=== PATIENT | male | born 1940 | race Caucasian/White ===

== ENCOUNTER 2017-11-03 19:36 | Inpatient (IN) | payer MEDICARE, OTHER ==
[2017-11-03] MEDS ORDERED: POLYETHYLENE GLYCOL 17 GM PACKET PO (21:30)
[2017-11-03] MEDS ORDERED: NITROGLYCERIN (SL) 0.4 MG TAB SL (21:30)
[2017-11-03] MEDS ORDERED: ACETAMINOPHEN 325 MG TAB PO (21:30)
[2017-11-03] MEDS ORDERED: GLUCOSE GEL 15 GRAM TUBE BUCCAL (21:30)
[2017-11-03] MEDS ORDERED: ONDANSETRON (ODT) 4 MG TAB ODT (21:30)
[2017-11-03] MEDS ORDERED: GLUCAGON 1 MG INJ IM (21:30)
[2017-11-03] MEDS ORDERED: DIPHENHYDRAMINE 25 MG CAP PO (21:30)
[2017-11-03] MEDS ORDERED: ALBUTEROL/IPRATROPIUM (NEB) 3 ML AMP HHN (21:30)
[2017-11-03] MEDS ORDERED: BISACODYL 10 MG SUPP PR (21:30)
[2017-11-03] MEDS ORDERED: DOCUSATE SODIUM 100 MG CAP PO (21:30)
[2017-11-03] MEDS ORDERED: GLUCOSE GEL 15 GRAM TUBE PO ×2 (21:30)
[2017-11-03] MEDS ORDERED: DEXTROSE 50% 50 ML SYRINGE IV ×2 (21:30)
[2017-11-03] MEDS: LISINOPRIL 20 MG TAB PO (22:28)
[2017-11-03] MEDS: HEPARIN 5,000 UNIT/0.5 ML VIAL SC (22:32)
[2017-11-04] MEDS: ACCUCHECK AT 2AM (Patients on SS coverage) XX (02:00)
[2017-11-04] MEDS ORDERED: MAGNESIUM HYDROXIDE 30ML CUP PO (02:30)
[2017-11-04] MEDS ORDERED: LACTULOSE 30ML CUP PO (02:30)
[2017-11-04] MEDS: PANTOPRAZOLE (EC) 40 MG TAB PO (05:40)
[2017-11-04] MEDS: HEPARIN 5,000 UNIT/0.5 ML VIAL SC ×3 (05:42→23:15)
[2017-11-04] MEDS: Insulin NOVOLOG SS MODERATE Algorithm (SS with meals and bedtime) SC ×4 (07:35→21:26)
[2017-11-04 07:42] LABS: ADD MAN DIFF? NO
[2017-11-04 07:45] LABS: WHITE BLOOD COUNT 7.1 10^3/ul (4.8-10.8)
[2017-11-04 07:45] LABS: BASOPHILS % 0.3 % (0.0-2.0); EOSINOPHILS # 0.3 10^3/ul (0.0-0.5); EOSINOPHILS % 4.7 % (0.0-7.0); HEMATOCRIT 45.4 % (42.0-52.0); HEMOGLOBIN 14.3 g/dl (14.0-18.0); LYMPHOCYTES # 1.2 10^3/ul (0.8-2.9); LYMPHOCYTES % 17.2 % (15.0-51.0); MEAN CORPUSCULAR HEMOGLOBIN 25.2 pg (29.0-33.0); MEAN CORPUSCULAR HGB CONC 31.5 g/dl (32.0-37.0); MEAN CORPUSCULAR VOLUME 79.9 fl (82.0-101.0); MEAN PLATELET VOLUME 10.9 fl (7.4-10.4); MONOCYTE # 0.6 10^3/ul (0.3-0.9); MONOCYTES % 8.6 % (0.0-11.0); NEUTROPHIL # 4.9 10^3/ul (1.6-7.5); NEUTROPHILS % 68.6 % (39.0-77.0); PLATELET COUNT 148 10^3/UL (140-415); RED BLOOD COUNT 5.68 10^6/ul (4.70-6.10); RED CELL DISTRIBUTION WIDTH 21.2 % (11.5-14.5)
[2017-11-04 08:06] LABS: ALANINE AMINOTRANSFERASE 45 IU/L (13-69); ALBUMIN 3.5 g/dl (3.3-4.9); ALBUMIN/GLOBULIN RATIO 1.29; ALKALINE PHOSPHATASE 57 IU/L (42-121); ANION GAP 16 (8-16); ASPARTATE AMINO TRANSFERASE 21 IU/L (15-46); BILIRUBIN,INDIRECT 0.5 mg/dl (0-1.1); BILIRUBIN,TOTAL 0.5 mg/dl (0.2-1.3); BLOOD UREA NITROGEN 41 mg/dl (7-20); CALCIUM 10.1 mg/dl (8.4-10.2); CARBON DIOXIDE 27 mmol/L (21-31); CHLORIDE 95 mmol/L (97-110); CREATININE 1.08 mg/dl (0.61-1.24); GLUCOSE 181 mg/dl (70-220); SODIUM 133 mmol/L (135-144); TOTAL PROTEIN 6.2 g/dl (6.1-8.1)
[2017-11-04 08:10] LABS: PHOSPHORUS 4.5 mg/dl (2.5-4.9)
[2017-11-04 08:10] LABS: MAGNESIUM 1.8 mg/dl (1.7-2.5)
[2017-11-04 08:20] LABS: B-TYPE NATRIURETIC PEPTIDE 473 PG/ML (0-450)
[2017-11-04] MEDS: ALBUTEROL/IPRATROPIUM (NEB) 3 ML AMP HHN ×4 (08:30→20:02)
[2017-11-04] MEDS: DOCUSATE SODIUM 100 MG CAP PO ×3 (09:00→21:00)
[2017-11-04] MEDS: ASPIRIN (EC) 81 MG TAB PO (09:17)
[2017-11-04] MEDS: FUROSEMIDE 40 MG TAB PO (09:18)
[2017-11-04] MEDS: ALLOPURINOL 300 MG TAB PO ×2 (09:18→09:57)
[2017-11-04] MEDS: LISINOPRIL 20 MG TAB PO ×2 (09:18→20:50)
[2017-11-04] MEDS: predniSONE 5 MG TAB PO (09:18)
[2017-11-04] MEDS: metFORMIN 500 MG TAB PO ×2 (12:44→17:39)
[2017-11-04 16:01] LABS: ADD UMIC YES; UR ASCORBIC ACID NEGATIVE (NEGATIVE); UR BACTERIA MANY /HPF (NONE SEEN); UR BILIRUBIN (Dip) NEGATIVE (NEGATIVE); UR BLOOD (Dip) 1+ mg/dL (NEGATIVE); UR CLARITY CLOUDY (CLEAR); UR COLOR YELLOW (YELLOW); UR GLUCOSE (Dip) NEGATIVE (NEGATIVE); UR KETONES (Dip) NEGATIVE (NEGATIVE); UR LEUKOCYTE ESTERASE (Dip) 3+ Leu/ul (NEGATIVE); UR NITRITE (Dip) POSITIVE (NEGATIVE); UR RBC 12 /HPF (0-5); UR SPECIFIC GRAVITY (Dip) 1.014 (1.003-1.030); UR TOTAL PROTEIN (Dip) 1+ mg/dl (NEGATIVE); UR UROBILINOGEN (Dip) NEGATIVE (NEGATIVE); UR WBC 150 /HPF (0-5)
[2017-11-04] MEDS: ATORVASTATIN 10 MG TAB PO (20:50)
[2017-11-04] MEDS: FAMOTIDINE 20 MG TAB PO (20:51)
[2017-11-04] MEDS: SENNA TAB PO (21:00)
[2017-11-05] MEDS: ACCUCHECK AT 2AM (Patients on SS coverage) XX (02:00)
[2017-11-05] MEDS: PANTOPRAZOLE (EC) 40 MG TAB PO (06:12)
[2017-11-05] MEDS: HEPARIN 5,000 UNIT/0.5 ML VIAL SC ×3 (06:20→21:09)
[2017-11-05 07:04] LABS: ANION GAP 13 (8-16); BLOOD UREA NITROGEN 37 mg/dl (7-20); CALCIUM 10.2 mg/dl (8.4-10.2); CARBON DIOXIDE 28 mmol/L (21-31); CHLORIDE 100 mmol/L (97-110); CREATININE 1.15 mg/dl (0.61-1.24); GLUCOSE 139 mg/dl (70-220); MAGNESIUM 1.8 mg/dl (1.7-2.5); PHOSPHORUS 4.3 mg/dl (2.5-4.9); SODIUM 136 mmol/L (135-144)
[2017-11-05] MEDS: Insulin NOVOLOG SS MODERATE Algorithm (SS with meals and bedtime) SC ×4 (07:35→21:00)
[2017-11-05] MEDS: DOCUSATE SODIUM 100 MG CAP PO ×2 (08:32→21:00)
[2017-11-05] MEDS: predniSONE 5 MG TAB PO (08:39)
[2017-11-05] MEDS: ASPIRIN (EC) 81 MG TAB PO (08:39)
[2017-11-05] MEDS: metFORMIN 500 MG TAB PO ×2 (08:39→17:46)
[2017-11-05] MEDS: FUROSEMIDE 40 MG TAB PO (08:40)
[2017-11-05] MEDS: LISINOPRIL 20 MG TAB PO ×2 (08:41→21:02)
[2017-11-05] MEDS: ALLOPURINOL 300 MG TAB PO (08:42)
[2017-11-05] MEDS: ALBUTEROL/IPRATROPIUM (NEB) 3 ML AMP HHN ×4 (08:56→20:10)
[2017-11-05] MEDS: SENNA TAB PO (21:00)
[2017-11-05] MEDS: ATORVASTATIN 10 MG TAB PO (21:02)
[2017-11-05] MEDS: FAMOTIDINE 20 MG TAB PO (21:02)
[2017-11-06] MEDS: ACCUCHECK AT 2AM (Patients on SS coverage) XX (02:00)
[2017-11-06] MEDS: PANTOPRAZOLE (EC) 40 MG TAB PO (06:41)
[2017-11-06] MEDS: HEPARIN 5,000 UNIT/0.5 ML VIAL SC ×3 (06:45→21:58)
[2017-11-06] MEDS: metFORMIN 500 MG TAB PO ×2 (08:23→17:57)
[2017-11-06] MEDS: Insulin NOVOLOG SS MODERATE Algorithm (SS with meals and bedtime) SC ×4 (08:25→21:00)
[2017-11-06] MEDS: ALBUTEROL/IPRATROPIUM (NEB) 3 ML AMP HHN ×4 (08:25→21:06)
[2017-11-06] MEDS: DOCUSATE SODIUM 100 MG CAP PO ×2 (08:57→21:00)
[2017-11-06] MEDS: ASPIRIN (EC) 81 MG TAB PO (08:58)
[2017-11-06] MEDS: FUROSEMIDE 40 MG TAB PO (09:00)
[2017-11-06] MEDS: ALLOPURINOL 300 MG TAB PO (09:01)
[2017-11-06] MEDS: LISINOPRIL 20 MG TAB PO ×2 (09:01→20:42)
[2017-11-06] MEDS: predniSONE 5 MG TAB PO (09:01)
[2017-11-06] MEDS: ATORVASTATIN 10 MG TAB PO (20:38)
[2017-11-06] MEDS: FAMOTIDINE 20 MG TAB PO (20:39)
[2017-11-06] MEDS: SENNA TAB PO (21:00)
[2017-11-07] MEDS: ACCUCHECK AT 2AM (Patients on SS coverage) XX (02:00)
[2017-11-07] MEDS: PANTOPRAZOLE (EC) 40 MG TAB PO (05:37)
[2017-11-07] MEDS: HEPARIN 5,000 UNIT/0.5 ML VIAL SC ×2 (05:38→06:00)
[2017-11-07] MEDS: Insulin NOVOLOG SS MODERATE Algorithm (SS with meals and bedtime) SC ×4 (07:35→21:00)
[2017-11-07] MEDS: ALBUTEROL/IPRATROPIUM (NEB) 3 ML AMP HHN ×3 (07:55→19:43)
[2017-11-07] MEDS: LISINOPRIL 20 MG TAB PO ×2 (09:00→21:35)
[2017-11-07] MEDS: DOCUSATE SODIUM 100 MG CAP PO ×2 (09:00→21:00)
[2017-11-07] MEDS: ALLOPURINOL 300 MG TAB PO (09:08)
[2017-11-07] MEDS: FUROSEMIDE 40 MG TAB PO (09:09)
[2017-11-07] MEDS: ASPIRIN (EC) 81 MG TAB PO (09:09)
[2017-11-07] MEDS: metFORMIN 500 MG TAB PO ×2 (09:10→17:38)
[2017-11-07] MEDS: SENNA TAB PO (21:00)
[2017-11-07] MEDS: FAMOTIDINE 20 MG TAB PO (21:36)
[2017-11-07] MEDS: ATORVASTATIN 10 MG TAB PO (21:36)
[2017-11-08] MEDS: ALBUTEROL/IPRATROPIUM (NEB) 3 ML AMP HHN ×4 (01:39→20:11)
[2017-11-08] MEDS: ACCUCHECK AT 2AM (Patients on SS coverage) XX (02:00)
[2017-11-08] MEDS: PANTOPRAZOLE (EC) 40 MG TAB PO (06:11)
[2017-11-08] MEDS: metFORMIN 500 MG TAB PO ×2 (08:04→17:43)
[2017-11-08] MEDS: Insulin NOVOLOG SS MODERATE Algorithm (SS with meals and bedtime) SC ×4 (08:08→21:00)
[2017-11-08] MEDS: LISINOPRIL 20 MG TAB PO ×2 (08:50→21:00)
[2017-11-08] MEDS: ALLOPURINOL 300 MG TAB PO (08:51)
[2017-11-08] MEDS: ASPIRIN (EC) 81 MG TAB PO (08:52)
[2017-11-08] MEDS: FUROSEMIDE 40 MG TAB PO (08:52)
[2017-11-08] MEDS: DOCUSATE SODIUM 100 MG CAP PO ×2 (08:55→21:00)
[2017-11-08] MEDS: SENNA TAB PO (21:00)
[2017-11-08] MEDS: ATORVASTATIN 10 MG TAB PO (21:02)
[2017-11-08] MEDS: FAMOTIDINE 20 MG TAB PO (21:02)
[2017-11-09] MEDS: ALBUTEROL/IPRATROPIUM (NEB) 3 ML AMP HHN ×4 (01:58→20:07)
[2017-11-09] MEDS: ACCUCHECK AT 2AM (Patients on SS coverage) XX (02:00)
[2017-11-09] MEDS: PANTOPRAZOLE (EC) 40 MG TAB PO (06:19)
[2017-11-09] MEDS: LEVOFLOXACIN 500 MG TAB PO (06:19)
[2017-11-09] MEDS: Insulin NOVOLOG SS MODERATE Algorithm (SS with meals and bedtime) SC ×4 (07:35→21:00)
[2017-11-09] MEDS: ALLOPURINOL 300 MG TAB PO (08:35)
[2017-11-09] MEDS: ASPIRIN (EC) 81 MG TAB PO (08:35)
[2017-11-09] MEDS: metFORMIN 500 MG TAB PO ×2 (08:35→17:33)
[2017-11-09] MEDS: FUROSEMIDE 40 MG TAB PO (08:36)
[2017-11-09] MEDS: DOCUSATE SODIUM 100 MG CAP PO ×2 (08:38→21:00)
[2017-11-09] MEDS: LISINOPRIL 20 MG TAB PO ×2 (08:38→21:00)
[2017-11-09] MEDS: SENNA TAB PO (21:00)
[2017-11-09] MEDS: ATORVASTATIN 10 MG TAB PO (21:15)
[2017-11-09] MEDS: FAMOTIDINE 20 MG TAB PO (21:15)
[2017-11-10] MEDS: ALBUTEROL/IPRATROPIUM (NEB) 3 ML AMP HHN ×4 (01:54→21:16)
[2017-11-10] MEDS: ACCUCHECK AT 2AM (Patients on SS coverage) XX (02:00)
[2017-11-10] MEDS: PANTOPRAZOLE (EC) 40 MG TAB PO (05:56)
[2017-11-10] MEDS: LEVOFLOXACIN 500 MG TAB PO (05:56)
[2017-11-10] MEDS: Insulin NOVOLOG SS MODERATE Algorithm (SS with meals and bedtime) SC ×4 (07:35→21:00)
[2017-11-10] MEDS: ALLOPURINOL 300 MG TAB PO (08:33)
[2017-11-10] MEDS: FUROSEMIDE 40 MG TAB PO (08:35)
[2017-11-10] MEDS: LISINOPRIL 20 MG TAB PO ×2 (08:36→21:14)
[2017-11-10] MEDS: ASPIRIN (EC) 81 MG TAB PO (08:37)
[2017-11-10] MEDS: DOCUSATE SODIUM 100 MG CAP PO ×2 (08:37→21:00)
[2017-11-10] MEDS: metFORMIN 500 MG TAB PO ×2 (08:38→17:44)
[2017-11-10] MEDS: SENNA TAB PO (21:00)
[2017-11-10] MEDS: ATORVASTATIN 10 MG TAB PO (21:13)
[2017-11-10] MEDS: FAMOTIDINE 20 MG TAB PO (21:13)
[2017-11-11] MEDS: ACCUCHECK AT 2AM (Patients on SS coverage) XX (02:00)
[2017-11-11] MEDS: ALBUTEROL/IPRATROPIUM (NEB) 3 ML AMP HHN ×2 (02:21→07:53)
[2017-11-11] MEDS: LEVOFLOXACIN 500 MG TAB PO (06:28)
[2017-11-11] MEDS: PANTOPRAZOLE (EC) 40 MG TAB PO (06:28)
[2017-11-11] MEDS: Insulin NOVOLOG SS MODERATE Algorithm (SS with meals and bedtime) SC (08:30)
[2017-11-11] MEDS: ALLOPURINOL 300 MG TAB PO (08:45)
[2017-11-11] MEDS: ASPIRIN (EC) 81 MG TAB PO (08:46)
[2017-11-11] MEDS: metFORMIN 500 MG TAB PO (08:46)
[2017-11-11] MEDS: FUROSEMIDE 40 MG TAB PO (08:46)
[2017-11-11] MEDS: LISINOPRIL 20 MG TAB PO (08:48)
[2017-11-11] MEDS: DOCUSATE SODIUM 100 MG CAP PO (08:48)
== END 2017-11-11 12:00 | disposition home health service (06) | DRG 92 ==
LOC: VRC 19:36
DX: G72.81 Critical illness myopathy (principal); I50.32 Chronic diastolic (congestive) heart failure; E66.2 Morbid (severe) obesity with alveolar hypoventilation; Z68.41 Body mass index [BMI] 40.0-44.9, adult; N17.9 Acute kidney failure, unspecified; E87.1 Hypo-osmolality and hyponatremia; I13.0 Hypertensive heart and chronic kidney disease with heart failure and stage 1 through stage 4 chronic kidney disease, or unspecified chronic kidney disease; N39.0 Urinary tract infection, site not specified; J44.9 Chronic obstructive pulmonary disease, unspecified; I25.10 Atherosclerotic heart disease of native coronary artery without angina pectoris; N18.9 Chronic kidney disease, unspecified; N40.0 Benign prostatic hyperplasia without lower urinary tract symptoms; Z86.79 Personal history of other diseases of the circulatory system; E11.22 Type 2 diabetes mellitus with diabetic chronic kidney disease; E78.5 Hyperlipidemia, unspecified; I27.20 Pulmonary hypertension, unspecified; Z85.46 Personal history of malignant neoplasm of prostate; D64.9 Anemia, unspecified; E83.89 Other disorders of mineral metabolism; G47.30 Sleep apnea, unspecified; I25.2 Old myocardial infarction; Z92.3 Personal history of irradiation; M10.9 Gout, unspecified; Z98.84 Bariatric surgery status; Z95.5 Presence of coronary angioplasty implant and graft; B96.20 Unspecified Escherichia coli [E. coli] as the cause of diseases classified elsewhere
CPT/HCPCS: 80048; 80053; 81001; 82962; 83735; 83880; 84100; 85025; 87081; 87086; 94640; 94660; 94664; 97110; 97112; 97116; 97150; 97163; 97530; 97535